=== PATIENT | male | born 1940 | race Caucasian/White ===

== ENCOUNTER 2017-01-08 22:03 | Emergency (ER) | payer OTHER ==
[~2017-01-08] VITALS: Ht 177.8 cm; Wt 93.4 kg
[2017-01-08] MEDS ORDERED: KEFLEX500 MG PO (23:36)
[2017-01-09] MEDS ORDERED: LOSARTAN-HCTZ1 EAC1 PO (00:11)
[2017-01-09] MEDS ORDERED: ALLOPURINOL 10100 M1 PO (00:11)
[2017-01-09] MEDS ORDERED: OMEPRAZOLE20 M2 PO (00:11)
[2017-01-09] MEDS ORDERED: METFORMIN HCL500 MG PO (00:12)
[2017-01-09] MEDS ORDERED: ASPIR 8181 MG PO (00:12)
[2017-01-09] MEDS ORDERED: FENOFIBRATE160 MG PO (00:13)
[2017-01-09] MEDS ORDERED: AMARYL2 MG PO (00:13)
[2017-01-09] MEDS ORDERED: KLOR-CON 1010 MEQ PO (00:14)
[2017-01-09 00:30] VITALS: BP 129/72
== END 2017-01-09 00:31 | disposition home or self-care (01) ==
LOC: ER 22:03
DX: S91.112A Laceration without foreign body of left great toe without damage to nail, initial encounter (principal); E11.9 Type 2 diabetes mellitus without complications; I10 Essential (primary) hypertension; E89.0 Postprocedural hypothyroidism; K21.9 Gastro-esophageal reflux disease without esophagitis; Z88.5 Allergy status to narcotic agent; Z90.49 Acquired absence of other specified parts of digestive tract; Z88.6 Allergy status to analgesic agent; Z98.890 Other specified postprocedural states; W01.0XXA Fall on same level from slipping, tripping and stumbling without subsequent striking against object, initial encounter; Y93.01 Activity, walking, marching and hiking; Y92.89 Other specified places as the place of occurrence of the external cause; Y99.8 Other external cause status